=== PATIENT | female | born 1950 | race Caucasian/White ===

== ENCOUNTER 2019-10-05 08:01 | Inpatient (IN) | payer MEDICARE, OTHER ==
[~2019-10-05] VITALS: Ht 157.5 cm; Wt 70.3 kg
[2019-10-05 08:52] LABS: EOSINOPHILS % 2.7 % (0.0-5.0); HEMATOCRIT. 41.9 % (36.0-48.0); HEMOGLOBIN. 14.6 g/dL (12.0-16.0); LYMPHOCYTES % 44.1 % (20.0-50.0); MEAN CORPUSCULAR HEMOGLOBIN 30.8 pg (28.0-32.0); MEAN CORPUSCULAR VOLUME 88.3 fL (81.0-99.0); MEAN PLATELET VOLUME 8.7 fl (7.4-10.4); NEUTROPHILS % 47.2 % (40.0-76.0); PLATELET 188 x1000/uL (130-400); RED BLOOD CELL COUNT 4.74 mill/uL (4.2-5.4); RED CELL DISTRIBUTION WIDTH 12.2 % (11.6-14.6)
[2019-10-05 08:57] LABS: CHLORIDE 105 mEq/L (98-107)
[2019-10-05 09:44] LABS: INR 0.9; PROTHROMBIN TIME 10.3 sec (9.6-11.0)
[2019-10-05 11:42] LABS: CLARITY URINE CLEAR (CLEAR); COLOR URINE YELLOW (YELLOW); KETONES URINE NEGATIVE (NEGATIVE); LEUKOCYTE ESTERASE URINE NEGATIVE (NEGATIVE); NITRITE URINE POSITIVE (NEGATIVE); OCCULT BLOOD URINE NEGATIVE (NEGATIVE); PH URINE 7.5 (4.5-8.0); PROTEIN URINE NEGATIVE (NEGATIVE); SPECIFIC GRAVITY URINE 1.005 (1.005-1.030); UROBILINOGEN URINE 0.2 E.U./dL (0.2-1.0)
[2019-10-05] MEDS ORDERED: LISINOPRIL 10MG TABLET PO SCH (21:00)
[2019-10-05] MEDS: LISINOPRIL 10MG TABLET PO SCH (22:39)
[2019-10-06 09:00] VITALS: BP 120/75
[2019-10-06] MEDS ORDERED: AMLODIPINE 5MG TABLET PO SCH (09:00)
[2019-10-06 09:13] VITALS: BP 120/75
[2019-10-06] MEDS: DOCUSATE SODIUM SUGAR FREE 100MG/10ML UDC NG SCH (09:47)
[2019-10-06] MEDS: PAROXETINE HCL 10MG TABLET PO SCH (09:48)
[2019-10-06] MEDS: LISINOPRIL 10MG TABLET PO SCH ×2 (09:48→21:29)
[2019-10-06] MEDS: METFORMIN HCL 500MG TABLET PO SCH ×2 (09:48→17:02)
[2019-10-06] MEDS ORDERED: NAPR-681 PO (09:54)
[2019-10-06] MEDS ORDERED: ATOR40TA70 PO (09:54)
[2019-10-06] MEDS ORDERED: AMLO5TAB88 PO (09:54)
[2019-10-06] MEDS ORDERED: LISI10TA5 PO (09:54)
[2019-10-06] MEDS ORDERED: METF-414 PO (09:54)
[2019-10-06] MEDS ORDERED: ACETAMINOPHEN 325MG TABLET PO PRN (10:15)
[2019-10-06] MEDS ORDERED: HYDROMORPHONE HCL/PF 2MG/ML CPJ IV PRN (10:15)
[2019-10-06] MEDS ORDERED: ONDANSETRON HCL 4MG/2ML INJ IV PRN (10:15)
[2019-10-06] MEDS ORDERED: HYDROCODONE/ACETAMINOPHEN 5/325MG TABLET PO PRN (10:15)
[2019-10-06] MEDS ORDERED: CLONIDINE 0.1MG TABLET PO PRN (10:15)
[2019-10-06] MEDS ORDERED: DEXTROSE 50% WATER 50ML SYRINGE IV PRN (11:00)
[2019-10-06 11:55] VITALS: BP 104/58
[2019-10-06] MEDS: BLOOD SUGAR DIAGNOSTIC STRIP TEST SCH ×3 (12:13→21:29)
[2019-10-06] MEDS: INSULIN LISPRO 100 UNITS/ML SUBCUT SCH ×3 (12:14→21:38)
[2019-10-06] MEDS: CARBIDOPA/LEVODOPA 25/100MG TABLET PO SCH ×2 (14:08→21:29)
[2019-10-06] MEDS: CEFTRIAXONE 1 G PREMIX 50 ML IV SCH (15:39)
[2019-10-06] MEDS: CALCITONIN,SALMON, 3.7 ML NASAL SPRAY ONENSTRL SCH (15:40)
[2019-10-06 16:08] LABS: CLARITY URINE CLOUDY (CLEAR); COLOR URINE DARK YELLOW (YELLOW); KETONES URINE TRACE (NEGATIVE); LEUKOCYTE ESTERASE URINE 2+ (NEGATIVE); NITRITE URINE NEGATIVE (NEGATIVE); OCCULT BLOOD URINE NEGATIVE (NEGATIVE); PH URINE 5.5 (4.5-8.0); PROTEIN URINE NEGATIVE (NEGATIVE); SPECIFIC GRAVITY URINE 1.023 (1.005-1.030)
[2019-10-06 16:09] VITALS: BP 117/71
[2019-10-06 16:32] LABS: CREATINE KINASE 44 IU/L (26-192)
[2019-10-06] MEDS: CALCIUM CARBONATE/VITAMIN D3 500MG TABLET PO SCH (17:02)
[2019-10-06 20:00] VITALS: BP 99/52
[2019-10-06] MEDS ORDERED: ATORVASTATIN CALCIUM 40MG TABLET PO SCH (21:00)
[2019-10-06] MEDS: ATORVASTATIN CALCIUM 40MG TABLET PO SCH (21:28)
[2019-10-06 23:59] LABS: CREATINE KINASE 46 IU/L (26-192)
[2019-10-07] VITALS (7 sets, daily range): BP systolic 77–120; BP diastolic 43–69
[2019-10-07] MEDS ORDERED: HETASTARCH/NORMAL SALINE 500 ML PLAST..BAG IV SCH (01:00)
[2019-10-07] MEDS: CARBIDOPA/LEVODOPA 25/100MG TABLET PO SCH ×3 (05:26→21:05)
[2019-10-07] MEDS: BLOOD SUGAR DIAGNOSTIC STRIP TEST SCH ×4 (06:39→21:05)
[2019-10-07] MEDS: INSULIN LISPRO 100 UNITS/ML SUBCUT SCH ×4 (06:42→21:00)
[2019-10-07 07:20] LABS: BASOPHILS % 0.9 % (0.0-2.0); HEMATOCRIT. 39.5 % (36.0-48.0); HEMOGLOBIN. 13.7 g/dL (12.0-16.0); MEAN CORPUSCULAR HEMOGLOBIN 30.7 pg (28.0-32.0); MEAN CORPUSCULAR VOLUME 88.8 fL (81.0-99.0); MEAN PLATELET VOLUME 9.2 fl (7.4-10.4); MONOCYTES % 5.9 % (2.0-8.0); NEUTROPHILS % 55.2 % (40.0-76.0); PLATELET 192 x1000/uL (130-400); RED BLOOD CELL COUNT 4.44 mill/uL (4.2-5.4); RED CELL DISTRIBUTION WIDTH 12.5 % (11.6-14.6)
[2019-10-07 07:53] LABS: CHLORIDE 107 mEq/L (98-107)
[2019-10-07 08:05] LABS: HDL CHOLESTEROL 58 mg/dL (40-59); LDL CHOLESTEROL 96 mg/dL (5-100)
[2019-10-07] MEDS: DOCUSATE SODIUM SUGAR FREE 100MG/10ML UDC NG SCH (10:25)
[2019-10-07] MEDS: PAROXETINE HCL 10MG TABLET PO SCH (10:26)
[2019-10-07] MEDS: CALCIUM CARBONATE/VITAMIN D3 500MG TABLET PO SCH ×2 (10:26→17:40)
[2019-10-07] MEDS: CALCITONIN,SALMON, 3.7 ML NASAL SPRAY ONENSTRL SCH (10:26)
[2019-10-07] MEDS: METFORMIN HCL 500MG TABLET PO SCH ×2 (10:29→17:40)
[2019-10-07] MEDS: CEFTRIAXONE 1 G PREMIX 50 ML IV SCH (13:20)
[2019-10-07] MEDS ORDERED: LEVOFLOXACIN 500MG TABLET PO NR (13:45)
[2019-10-07] MEDS: ATORVASTATIN CALCIUM 40MG TABLET PO SCH (21:05)
[2019-10-08] VITALS: BP 106/57
[2019-10-08 04:00] VITALS: BP 121/66
[2019-10-08] MEDS: CARBIDOPA/LEVODOPA 25/100MG TABLET PO SCH ×2 (05:54→13:21)
[2019-10-08 06:13] LABS: BASOPHILS % 0.7 % (0.0-2.0); EOSINOPHILS % 3.1 % (0.0-5.0); HEMATOCRIT. 40.7 % (36.0-48.0); HEMOGLOBIN. 13.9 g/dL (12.0-16.0); LYMPHOCYTES % 44.2 % (20.0-50.0); MEAN CORPUSCULAR HEMOGLOBIN 30.4 pg (28.0-32.0); MEAN CORPUSCULAR VOLUME 89.3 fL (81.0-99.0); MEAN PLATELET VOLUME 8.9 fl (7.4-10.4); MONOCYTES % 5.8 % (2.0-8.0); NEUTROPHILS % 46.2 % (40.0-76.0); PLATELET 208 x1000/uL (130-400); RED BLOOD CELL COUNT 4.56 mill/uL (4.2-5.4); RED CELL DISTRIBUTION WIDTH 12.5 % (11.6-14.6)
[2019-10-08 06:38] LABS: CHLORIDE 107 mEq/L (98-107)
[2019-10-08] MEDS: BLOOD SUGAR DIAGNOSTIC STRIP TEST SCH ×2 (06:57→11:45)
[2019-10-08] MEDS: INSULIN LISPRO 100 UNITS/ML SUBCUT SCH ×2 (06:57→12:15)
[2019-10-08] MEDS: DOCUSATE SODIUM SUGAR FREE 100MG/10ML UDC NG SCH (09:00)
[2019-10-08] MEDS: PAROXETINE HCL 10MG TABLET PO SCH (09:46)
[2019-10-08] MEDS: CALCIUM CARBONATE/VITAMIN D3 500MG TABLET PO SCH (09:46)
[2019-10-08] MEDS: CALCITONIN,SALMON, 3.7 ML NASAL SPRAY ONENSTRL SCH (09:46)
[2019-10-08] MEDS: METFORMIN HCL 500MG TABLET PO SCH (09:46)
[2019-10-08] MEDS ORDERED: LEVOFLOXACIN 250MG TABLET PO SCH (11:00)
[2019-10-08] MEDS: CEFTRIAXONE 1 G PREMIX 50 ML IV SCH (13:20)
[2019-10-08 16:41] VITALS: BP 108/50
== END 2019-10-08 18:20 | disposition home health service (06) | DRG 551 ==
LOC: ER 08:01 → 5WST 13:14 → EDBEDREQ 13:18 → EDBEDREQTM 13:18 → ENRESERV 10-06 07:52
PROVIDERS: ADMIT Internal Medicine; ATTEND Internal Medicine
DX: S32.029A Unspecified fracture of second lumbar vertebra, initial encounter for closed fracture (principal); G82.50 Quadriplegia, unspecified; N39.0 Urinary tract infection, site not specified; D25.9 Leiomyoma of uterus, unspecified; E78.5 Hyperlipidemia, unspecified; G20 Parkinson's disease; I10 Essential (primary) hypertension; D32.0 Benign neoplasm of cerebral meninges; F32.9 Major depressive disorder, single episode, unspecified; F41.9 Anxiety disorder, unspecified; B96.20 Unspecified Escherichia coli [E. coli] as the cause of diseases classified elsewhere; I95.1 Orthostatic hypotension; R29.6 Repeated falls; D18.09 Hemangioma of other sites; M48.04 Spinal stenosis, thoracic region; E11.9 Type 2 diabetes mellitus without complications; M48.061 Spinal stenosis, lumbar region without neurogenic claudication; M50.30 Other cervical disc degeneration, unspecified cervical region; M19.90 Unspecified osteoarthritis, unspecified site; W18.30XA Fall on same level, unspecified, initial encounter; Y93.89 Activity, other specified; Y92.89 Other specified places as the place of occurrence of the external cause; Y99.8 Other external cause status; Z86.011 Personal history of benign neoplasm of the brain; Z98.51 Tubal ligation status; Z82.49 Family history of ischemic heart disease and other diseases of the circulatory system; Z98.42 Cataract extraction status, left eye; Z98.41 Cataract extraction status, right eye
CPT/HCPCS: 36415; 70551; 72141; 72146; 72148; 80048; 80053; 80061; 81003; 82550; 82962; 83036; 84484; 85025; 87077; 87186; 93005; 93306; 93970; 97162; 97166; 99285; J0696; J1815